=== PATIENT | male | born 1955 | race Caucasian/White ===

== ENCOUNTER 2017-02-22 16:11 | Emergency (ER) | payer SELFPAY ==
[~2017-02-22] VITALS: Ht 167.6 cm; Wt 57.0 kg
[2017-02-22 16:14] VITALS: BP 171/82; PULSE 82; RESP 20; TEMP 97.4; O2SAT 99
[2017-02-22] MEDS ORDERED: CEPH-460 PO (16:53)
[2017-02-22] MEDS ORDERED: HYDR-3533 PO (16:53)
[2017-02-22] MEDS ORDERED: ACYC800T PO (16:53)
--- NOTE | 2017-02-22 16:58 | PD ---
HPI Chief Complaint: Eye Problems/Injury Time Seen by Provider: 16:53 Travel History International Travel<30 days: No Contact w/Intl Traveler<30days: No Traveled to known affect area: No History of Present Illness HPI 62-year-old male that presents to the ED for evaluation of problems with the left eye. Per patient she's had a rash and swelling around the left eye for the past 3 days. Patient went to an urgent care today he was told to come here to get his eye checked. Patient states that the provider pending wasn't too sure what he was in she was concerning for herpes zoster. She was concerned that he might be involving the eye. He denies any pain. Per patient he had chickenpox as a young boy. He denies any chest pain. No shortness of breath. No rashes anywhere else. No blurry vision or double vision. No pain. Patient denies any history of IV drug abuse or MRSA. Per patient he is never sick. He states that the only concern with him is the swelling as well as the rash. He was not given any prescriptions. PFSH Past Medical History Medical History: Denies Significant Hx Past Surgical History Other Surgery: Yes (hernia repair) Social History Alcohol Use: Yes (3-4 beers a night) Tobacco Use: Yes (1 - 1.5 pack day) Substance Use: No Allergies-Medications (Allergen,Severity, Reaction): Coded Allergies: No Known Allergies (Unverified , 02/22/17) Reported Meds & Prescriptions Reported Meds & Active Scripts Active Lortab (Hydrocodone-Acetaminophen) 5-325 Mg Tab 1 Tab PO Q4H PRN Keflex (Cephalexin) 500 Mg Cap 500 Mg PO Q8H 10 Days Acyclovir 800 Mg Tab 800 Mg PO 5 TIMES A DAY 7 Days Review of Systems Except as stated in HPI: all other systems reviewed are Neg Physical Exam Narrative GENERAL: SKIN: Warm and dry. HEAD: Atraumatic. Normocephalic. EYES: Pupils equal and round 4 mm reactive to light and accommodation. No scleral icterus. No injection or drainage. EOM intact bilaterally. Peripheral vision intact bilaterally. Fluorescein stain revealed no dendritic lesions or abrasions to the eye and cornea. Patient has a herpetic rash on the left forehead as well as the right nose and maxillary area. Vesicular. Follows dermatomal distribution. Does not cross the midline. Ophthalmic exam revealed no sign of papilledema or vessel disease. ENT: No nasal bleeding or discharge. Mucous membranes pink and moist. Tongue is midline. No uvula deviation. NECK: Trachea midline. No JVD. CARDIOVASCULAR: Regular rate and rhythm. RESPIRATORY: No accessory muscle use. Clear to auscultation. Breath sounds equal bilaterally. GASTROINTESTINAL: Abdomen soft, non-tender, nondistended. Hepatic and splenic margins not palpable. MUSCULOSKELETAL: Extremities without clubbing, cyanosis, or edema. No obvious deformities. NEUROLOGICAL: Awake and alert. No obvious cranial nerve deficits. Motor grossly within normal limits. Five out of 5 muscle strength in the arms and legs. Normal speech. PSYCHIATRIC: Appropriate mood and affect; insight and judgment normal. Data Data Last Documented VS Vital Signs Date Time Temp Pulse Resp B/P Pulse Ox O2 Delivery O2 Flow Rate FiO2 02/22/17 16:14 97.4 82 20 171/82 99 Room Air MDM Medical Decision Making Medical Screen Exam Complete: Yes Emergency Medical Condition: Yes Medical Record Reviewed: Yes Differential Diagnosis Herpes zoster versus periorbital cellulitis versus cellulitis Narrative Course 62-year-old male that presents to the ED for evaluation of left eye rash. Patient was properly examined and was found to have signs and symptoms consistent appears to be likely herpes zoster. My attending Dr. Coon evaluated the patient with me and agrees with plan. I spoke with Dr. Gomez over the phone who agrees that no treatment at this time for the eye itself but does recommend treating the herpes zoster with antivirals. Patient will be given information for Dr. Gomez's office. Patient agrees with plan. My attending recommends also treating with Keflex to rule out any sign of periorbital cellulitis of the this appears to be less likely. Patient was given Lortab for pain as well. Patient was given information for Dr. Gomez. Follow up with PCP. See ED worsening symptoms. Patient understands reasons to come back. Diagnosis Primary Impression: Shingles Qualified Code: B02.9 - Herpes zoster without complication Referrals: Gabby Gomez MD Patient Instructions: General Instructions Med/Other Pt SpecificInfo: Prescription(s) given Scripts Hydrocodone-Acetaminophen (Lortab)5-325 Mg Tab1 Tab PO Q4H PRN (PAIN) #15 TAB Ref 0 Prov:Davis Coon MD 5/21/17 Cephalexin (Keflex)500 Mg [id number] Mg PO Q8H 10 Days Ref 0 Prov:Davis Coon MD 02/22/17 Acyclovir 800 Mg [id number] Mg PO 5 TIMES A DAY 7 Days Ref 0 Prov:Davis Coon MD 02/22/17 Disposition: 01 DISCHARGE HOME Condition: Stable Nikhil Spaulding February 22, 2017 16:58
== END 2017-02-22 17:11 | disposition home or self-care (01) ==
LOC: NEPD 16:11
DX: B02.9 Zoster without complications (principal); F17.210 Nicotine dependence, cigarettes, uncomplicated; F10.10 Alcohol abuse, uncomplicated
CPT/HCPCS: 99283

== ENCOUNTER 2017-11-25 09:21 | Emergency (ER) | payer SELFPAY ==
[~2017-11-25] VITALS: Ht 167.6 cm; Wt 60.0 kg
[~2017-11-25 09:21] MED LIST: ACYC800T PO; CEPH-460 PO; HYDR-3533 PO
[2017-11-25 09:23] VITALS: BP 151/98; PULSE 118; RESP 14; TEMP 97.8; O2SAT 97
[2017-11-25 09:27] VITALS: PULSE 96
--- NOTE | 2017-11-25 09:41 | PD ---
HPI Chief Complaint: Skin Problem Time Seen by Provider: 09:30 Travel History International Travel<30 days: No Contact w/Intl Traveler<30days: No Traveled to known affect area: No History of Present Illness HPI 62-year-old male smoker presents for evaluation of a mass on the right side of his neck. It first started 3 weeks ago and has gradually grown larger since then. He reports that the mass is nontender. He denies any sore throat, cough , congestion, ear pain, fevers, chills, night sweats, unexplained weight loss, dental pain. He has never had this problem before. He denies any significant past medical history. He has no other complaints at this time. [facility] Past Medical History Medical History: Denies Significant Hx Past Surgical History Other Surgery: Yes (hernia repair, lung) Social History Alcohol Use: Yes (3-4 beers a night) Tobacco Use: Yes (1 - 1.5 pack day) Substance Use: No Allergies-Medications (Allergen,Severity, Reaction): Coded Allergies: No Known Allergies (Unverified Adverse Reaction, Unknown, 11/25/17) Reported Meds & Prescriptions Reported Meds & Active Scripts Active No Active Prescriptions or Reported Medications Review of Systems Except as stated in HPI: all other systems reviewed are Neg Physical Exam Narrative GENERAL: Well-developed well-nourished male in no acute distress SKIN: Warm and dry. HEAD: Atraumatic. Normocephalic. EYES: Pupils equal and round. No scleral icterus. No injection or drainage. ENT: No nasal bleeding or discharge. Mucous membranes pink and moist. NECK: Trachea midline. No JVD. There is a large right-sided anterior neck mass which is fixed, nontender. There is no erythema or fluctuance. CARDIOVASCULAR: Regular rate and rhythm. No murmur appreciated. RESPIRATORY: No accessory muscle use. Clear to auscultation. Breath sounds equal bilaterally. GASTROINTESTINAL: Abdomen soft, non-tender, nondistended. Hepatic and splenic margins not palpable. Data Data Last Documented VS Vital Signs Date Time Temp Pulse Resp B/P (MAP) Pulse Ox O2 Delivery O2 Flow Rate FiO2 11/25/17 09:27 96 11/25/17 09:23 97.[address] Soft Tiss Neck W Iv Cont (11/25/17 ) Complete Blood Count With Diff (11/25/17 09:36) Basic Metabolic Panel (Bmp) (11/25/17 09:36) Iv Access Insert/Monitor (11/25/17 09:36) Iohexol 350 Inj (Omnipaque 350 Inj) (11/25/17 10:56) Mandatory Outpatient Referral (11/25/17 12:24) Ed Discharge Order (11/25/17 12:25) Labs Laboratory Tests Test 11/25/17 09:50 White Blood Count 9.4 TH/MM3 Red Blood Count 4.25 MIL/MM3 Hemoglobin 14.8 GM/DL Hematocrit 40.4 % Mean Corpuscular Volume 95.2 FL Mean Corpuscular Hemoglobin 34.8 PG Mean Corpuscular Hemoglobin Concent 36.6 % Red Cell Distribution Width 12.8 % Platelet Count 341 TH/MM3 Mean Platelet Volume 7.3 FL Neutrophils (%) (Auto) 75.3 % Lymphocytes (%) (Auto) 15.7 % Monocytes (%) (Auto) 7.9 % Eosinophils (%) (Auto) 0.6 % Basophils (%) (Auto) 0.5 % Neutrophils # (Auto) 7.0 TH/MM3 Lymphocytes # (Auto) 1.5 TH/MM3 Monocytes # (Auto) 0.7 TH/MM3 Eosinophils # (Auto) 0.1 TH/MM3 Basophils # (Auto) 0.0 TH/MM3 CBC Comment AUTO DIFF Differential Comment AUTO DIFF CONFIRMED Blood Urea Nitrogen 7 MG/DL Creatinine 0.55 MG/DL Random Glucose 154 MG/DL Calcium Level 9.7 MG/DL Sodium Level 137 MEQ/L Potassium Level 4.4 MEQ/L Chloride Level 102 MEQ/L Carbon Dioxide Level 27.9 MEQ/L Anion Gap 7 MEQ/L Estimat Glomerular Filtration Rate 151 ML/MIN [facility] Medical Decision Making Medical Screen Exam Complete: Yes Emergency Medical Condition: Yes Medical Record Reviewed: Yes Differential Diagnosis Malignancy, lymphadenitis, abscess, siolalithiasis Narrative Course CT imaging of the neck was obtained revealing: CONCLUSION: 1. There is a 2.8 x 2.8 cm necrotic node in the group 2 jugular ede chain on the right. There is abnormal soft tissue extending down the jugular ede chain on the right as well. This is suspicious for malignancy. No definite primary etiology is seen within the nasopharynx, oropharynx or larynx. PET imaging would be of benefit for further assessment. This node would be readily amenable to ultrasound-guided biopsy. 2. Scarring in the lung apices. I spoke with the on-call oncologist Dr. Ulloa who would like the patient follow- up with him. I spoke with our case packer to confirm that a mandatory outpatient referral can be placed for outpatient follow-up. I discussed the follow-up purpose in great detail with the patient verbalized understanding. He was given a copy of his CAT scan report. He is stable for discharge. Diagnosis Primary Impression: Lymphadenitis Referrals: Blayne Ulloa MD Additional Instructions: Follow-up with Dr. Ulloa in his office. Our case packer will be calling at some point to help facilitate an appointment. Return for any emergent medical conditions. Med/Other Pt SpecificInfo: No Change to Meds Scripts No Active Prescriptions or Reported Meds Disposition: 01 DISCHARGE HOME Condition: Stable Freddy Mccoy Nov 25, 2017 09:41
[2017-11-25 10:16] LABS: BASOPHIL % 0.5 % (0.0-2.0); EOSINOPHIL # 0.1 TH/MM3 (0-0.4); EOSINOPHIL % 0.6 % (0.0-4.0); HEMATOCRIT 40.4 % (39.0-51.0); HEMOGLOBIN 14.8 GM/DL (13.0-17.0); LYMPH % 15.7 % (9.0-44.0); LYMPHOCYTE # 1.5 TH/MM3 (1.0-4.8); MEAN CELL VOLUME 95.2 FL (80.0-100.0); MEAN CORPUSCULAR HEMOGLOBIN 34.8 PG (27.0-34.0); MEAN PLATELET VOLUME 7.3 FL (7.0-11.0); MONO % 7.9 % (0.0-8.0); MONOCYTE # 0.7 TH/MM3 (0-0.9); NEUT % 75.3 % (16.0-70.0); PLATELET COUNT 341 TH/MM3 (150-450); RED BLOOD COUNT 4.25 MIL/MM3 (4.50-5.90); RED CELL DISTRIBUTION WIDTH 12.8 % (11.6-17.2); WHITE BLOOD COUNT 9.4 TH/MM3 (4.0-11.0)
[2017-11-25 10:22] LABS: BICARBONATE 27.9 MEQ/L (21.0-32.0); CALCIUM 9.7 MG/DL (8.5-10.1); CREATININE 0.55 MG/DL (0.60-1.30)
[2017-11-25 10:23] LABS: MEAN CORPUSCULAR HGB CONC 36.6 % (32.0-36.0)
[2017-11-25] MEDS ORDERED: IOHEXOL 350 MG/ML 10 ML VIAL (for RAD DIAG) IVCONTRAST ONE (10:56)
--- NOTE | 2017-11-25 11:09 | RADRPT ---
EXAM DATE/TIME: 11/25/2017 10:47 [facility] COMPARISON: No previous studies available for comparison. INDICATIONS : Neck pain, Lump on right side IV CONTRAST: 68 cc Omnipaque 350 (iohexol) IV RADIATION DOSE: 10.68 CTDIvol (mGy) MEDICAL HISTORY : None SURGICAL HISTORY : Lung surgery, hernia repair ENCOUNTER: Initial ACUITY: 3 weeks PAIN SCALE: 5/10 LOCATION: Right neck TECHNIQUE: Volumetric scanning of the neck was performed. Using automated exposure control and adjustment of th e mA and/or kV according to patient size, radiation dose was kept as low as reasonably achievable to obtain optimal diagnostic quality images. DICOM format image data is available electronically for r eview and comparison. FINDINGS: The examination demonstrates a 2.8 x 2.8 cm necrotic node in the group 2 jugular ede chain on the r ight. This is suspicious for malignancy. No discrete enhancing mass is seen within the posterior pill ar, the tongue base or the larynx. No definite primary etiology is identified. PET imaging would be o f benefit for further assessment. The limited portion of brain parenchyma visualized is unremarkable. The soft tissues of the nasophary nx and the oropharynx are intact. The larynx appears intact. The parotid and submandibular glands are intact. The limited portion of lung apex visualized demonstrates postsurgical changes with scarring in the ri ght upper lobe. There is apical pleural thickening on the left. The visualized osseous structures are grossly intact. CONCLUSION: 1. There is a 2.8 x 2.8 cm necrotic node in the group 2 jugular ede chain on the right. There is ab normal soft tissue extending down the jugular ede chain on the right as well. This is suspicious fo r malignancy. No definite primary etiology is seen within the nasopharynx, oropharynx or larynx. PET imaging would be of benefit for further assessment. This node would be readily amenable to ultrasound -guided biopsy. 2. Scarring in the lung apices. Cameron Dhaliwal MD on November 25, 2017 at 11:02 Board Certified Radiologist. This report was verified electronically.
== END 2017-11-25 12:37 | disposition home or self-care (01) ==
LOC: NEPK 09:21
DX: I88.9 Nonspecific lymphadenitis, unspecified (principal); F17.210 Nicotine dependence, cigarettes, uncomplicated
CPT/HCPCS: 70491; 80048; 85025; 99284; Q9967

== ENCOUNTER 2018-01-26 12:58 | Day surgery (SDC) | payer SELFPAY ==
[2018-01-26 13:45] VITALS: BP 124/90; PULSE 80; RESP 16; TEMP 98.8; O2SAT 100
[2018-01-26] MEDS ORDERED: LIDOCAINE HCL 1% PF 30 ML VIAL ONE (13:54)
[2018-01-26 14:25] VITALS: BP 117/85; PULSE 76; RESP 20; TEMP 98.4; O2SAT 96
--- NOTE | 2018-01-26 14:28 | RADRPT ---
EXAM DATE/TIME: 01/26/2018 13:45 [facility] COMPARISON: No previous studies available for comparison. INDICATIONS : Right neck mass. MEDICAL HISTORY : Weight loss. SURGICAL HISTORY : Lung surgery. Hernia repair. ENCOUNTER: Subsequent ACUITY: 2 weeks PAIN SCORE: 0/10 LOCATION: Right neck ORGAN: Right lymph node SPECIMENS: Three core specimen(s) submitted for pathologic evaluation. DEVICE: 18 gauge Temno needle Post procedure scanning reveals no hematoma or other complication. The possibility does exist that the tissue obtained will be non-diagnostic. If the sample is non-xavier gnostic a repeat biopsy or surgical biopsy may need to be performed. TECHNIQUE: 1. Ultrasound guidance for needle biopsy. 2. Needle biopsy. The risks, benefits and alternatives to the procedure were explained and verbal and written consent w as obtained. The site was prepped in sterile fashion. Full sterile technique was used, including ca p, mask, sterile gloves and gown and a large sterile sheet. Hand hygiene and 2% chlorhexidine and/or betadine/alcohol prep was utilized per protocol for cutaneous antisepsis. The skin and subcutaneous tissues were infiltrated with local anesthetic solution. Sterile gel and sterile probe cover were u tilized for ultrasound guidance. With the patient on the ultrasound table, images were obtained. A needle was advanced into the identified target and the number of specimens as above obtained and gudino bmitted for pathologic evaluation. Final specimen was submitted in RPMI solution. The patient tolerated the procedure well and left the ultrasound suite in stable condition. CONCLUSION: Uncomplicated ultrasound guided needle biopsy. Juan Naidu MD on January 26, 2018 at 14:25 Board Certified Radiologist. This report was verified electronically.
[2018-01-26 14:40] VITALS: BP 135/89; PULSE 74; RESP 20; O2SAT 95
== END 2018-01-26 14:51 | disposition home or self-care (01) ==
LOC: HRAD 12:58 → HRIP 13:33 → HRAD 14:51
PROVIDERS: ATTEND Internal Medicine Hematology & Oncology
DX: R22.1 Localized swelling, mass and lump, neck (principal); R63.4 Abnormal weight loss
CPT/HCPCS: 38505; 76942; 88305

== ENCOUNTER 2018-02-02 15:18 | Inpatient (IN) | payer OTHER ==
[~2018-02-02] VITALS: Ht 165.1 cm; Wt 45.1 kg
[2018-02-02 15:20] VITALS: BP 116/73; PULSE 67; RESP 19; TEMP 97.4; O2SAT 98
[2018-02-02] MEDS ORDERED: SODIUM CHLOR 0.9% 1000 ML INJ 1,000 ML IV ONE (15:30)
--- NOTE | 2018-02-02 15:40 | PD ---
HPI Chief Complaint: Abdominal Pain Time Seen by Provider: 15:24 Travel History International Travel<30 days: No Contact w/Intl Traveler<30days: No Traveled to known affect area: No History of Present Illness HPI The patient is a 63-year-old male who presents to the emergency department for abnormal lab results. The patient states he recently had a biopsy of a mass in the right neck, was diagnosed with cancer. The patient states he does not know the official diagnosis of his cancer. The patient's biopsy was done by Dr. Cross and is currently followed by his oncologist, Dr. Ulloa. The patient had outpatient laboratory evaluation which revealed an elevated calcium level was sent to the emergency department for further evaluation. The patient does have a history of tobacco use, is unsure if there is any metastasis to the bone. He denies any known history of parathyroid disorders or thyroid disorders. He denies any muscle aches, bone pains, psychiatric disorders, or kidney stones. He is currently asymptomatic, but was advised to come the emergency department for further evaluation. He continues use to pass urine without difficulty denies taking any medications including diuretics. 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 Past Surgical History Narrative Surgical Biopsy right neck mass Other Surgery: Yes (hernia repair, lung) Social History Alcohol Use: Yes (3-4 beers a night) Tobacco Use: Yes (1 - 1.5 pack day) Substance Use: No Allergies-Medications (Allergen,Severity, Reaction): Coded Allergies: No Known Allergies (Unverified Allergy, Unknown, 02/02/18) Reported Meds & Prescriptions Reported Meds & Active Scripts Active No Active Prescriptions or Reported Medications Review of Systems Except as stated in HPI: all other systems reviewed are Neg General / Constitutional: No: Fever HENT: Positive: Masses, No: Lightheadedness, Neck Pain Cardiovascular: No: Chest Pain or Discomfort Respiratory: No: Shortness of Breath Gastrointestinal: No: Nausea, Vomiting, Abdominal Pain Genitourinary: No: Dysuria, Hematuria, Decreased Urinary Output Musculoskeletal: No: Weakness Neurologic: No: Weakness, Change in Mentation, Paresthesia, Seizures, Sensory Disturbance Psychiatric: No: Depression Physical Exam Narrative GENERAL: Awake, alert, pleasant 63-year-old male who appears his stated age and is in no acute respiratory distress. SKIN: Focused skin assessment warm/dry. HEAD: Atraumatic. Normocephalic. EYES: Pupils equal and round. No scleral icterus. No injection or drainage. ENT: No nasal bleeding or discharge. Mucous membranes pink and moist. NECK: Right neck mass, nontender to palpation. CARDIOVASCULAR: Regular rate and rhythm. No murmur appreciated. RESPIRATORY: No accessory muscle use. Clear to auscultation. Breath sounds equal bilaterally. GASTROINTESTINAL: Abdomen soft, non-tender, nondistended. No rebound tenderness. MUSCULOSKELETAL: No obvious deformities. No clubbing. No cyanosis. No edema. NEUROLOGICAL: Awake and alert. No obvious cranial nerve deficits. Motor grossly within normal limits. Normal speech. Nonfocal. PSYCHIATRIC: Appropriate mood and affect; insight and judgment normal. Data Data Last Documented VS Vital Signs Date Time Temp Pulse Resp B/P (MAP) Pulse Ox O2 Delivery O2 Flow Rate FiO2 02/02/18 17:00 58 20 112/70 (84) 96 Room Air 02/02/18 15:20 97.4 Orders Orders Complete Blood Count With Diff (02/02/18 15:30) Comprehensive Metabolic Panel (02/02/18 15:30) Thyroid Stimulating Hormone (02/02/18 15:30) Magnesium (Mg) (02/02/18 15:30) Sodium Chlor 0.9% 1000 Ml Inj (Ns 1000 M (02/02/18 15:30) Free Thyroxine (T4) (02/02/18 15:30) Parathyroid Hormone Intact (02/02/18 15:30) Calcium, Ionized (02/02/18 15:30) Electrocardiogram (02/02/18 ) Ns + Kcl 20 Meq Inj (Ns + Kcl 20 Meq Inj (02/02/18 17:00) Admit Order (Ed Use Only) (02/02/18 17:22) Magnesium Sulfate 1 Gm Premix (Magnesium (02/02/18 17:30) Labs Laboratory Tests Test 02/02/18 15:40 02/02/18 16:40 Blood Urea Nitrogen 11 MG/DL Creatinine 0.81 MG/DL Random Glucose 67 MG/DL Total Protein 8.0 GM/DL Albumin 3.1 GM/DL Calcium Level 13.7 MG/DL Magnesium Level 1.4 MG/DL Alkaline Phosphatase 76 U/L Aspartate Amino Transf (AST/SGOT) 16 U/L Alanine Aminotransferase (ALT/SGPT) 12 U/L Total Bilirubin 0.2 MG/DL Sodium Level 133 MEQ/L Potassium Level 2.9 MEQ/L Chloride Level 91 MEQ/L Carbon Dioxide Level 34.4 MEQ/L Anion Gap 8 MEQ/L Estimat Glomerular Filtration Rate 97 ML/MIN Protein Corrected Calcium 13.0 MG/DL Free Thyroxine 1.22 NG/DL Thyroid Stimulating Hormone 3rd Gen 1.200 uIU/ML White Blood Count 16.9 TH/MM3 Red Blood Count 4.12 MIL/MM3 Hemoglobin 13.1 GM/DL Hematocrit 38.2 % Mean Corpuscular Volume 92.8 FL Mean Corpuscular Hemoglobin 31.8 PG Mean Corpuscular Hemoglobin Concent 34.3 % Red Cell Distribution Width 11.7 % Platelet Count 241 TH/MM3 Mean Platelet Volume 8.9 FL Neutrophils (%) (Auto) 72.9 % Lymphocytes (%) (Auto) 16.0 % Monocytes (%) (Auto) 9.0 % Eosinophils (%) (Auto) 1.4 % Basophils (%) (Auto) 0.7 % Neutrophils # (Auto) 12.3 TH/MM3 Lymphocytes # (Auto) 2.7 TH/MM3 Monocytes # (Auto) 1.5 TH/MM3 Eosinophils # (Auto) 0.2 TH/MM3 Basophils # (Auto) 0.1 TH/MM3 CBC Comment AUTO DIFF Differential Comment AUTO DIFF CONFIRMED Platelet Estimate NORMAL Platelet Morphology Comment CLUMPED MDM Medical Decision Making Medical Screen Exam Complete: Yes Emergency Medical Condition: Yes Medical Record Reviewed: Yes Interpretation(s) EKG reveals sinus bradycardia with a heart rate of 57. RSR prime in V1. Nonspecific ST changes. Laboratory Tests Test 02/02/18 15:40 02/02/18 16:40 Blood Urea Nitrogen 11 MG/DL Creatinine 0.81 MG/DL Random Glucose 67 MG/DL Total Protein 8.0 GM/DL Albumin 3.1 GM/DL Calcium Level 13.7 MG/DL Magnesium Level 1.4 MG/DL Alkaline Phosphatase 76 U/L Aspartate Amino Transf (AST/SGOT) 16 U/L Alanine Aminotransferase (ALT/SGPT) 12 U/L Total Bilirubin 0.2 MG/DL Sodium Level 133 MEQ/L Potassium Level 2.9 MEQ/L Chloride Level 91 MEQ/L Carbon Dioxide Level 34.4 MEQ/L Anion Gap 8 MEQ/L Estimat Glomerular Filtration Rate 97 ML/MIN Protein Corrected Calcium 13.0 MG/DL Free Thyroxine 1.22 NG/DL Thyroid Stimulating Hormone 3rd Gen 1.200 uIU/ML White Blood Count 16.9 TH/MM3 Red Blood Count 4.12 MIL/MM3 Hemoglobin 13.1 GM/DL Hematocrit 38.2 % Mean Corpuscular Volume 92.8 FL Mean Corpuscular Hemoglobin 31.8 PG Mean Corpuscular Hemoglobin Concent 34.3 % Red Cell Distribution Width 11.7 % Platelet Count 241 TH/MM3 Mean Platelet Volume 8.9 FL Neutrophils (%) (Auto) 72.9 % Lymphocytes (%) (Auto) 16.0 % Monocytes (%) (Auto) 9.0 % Eosinophils (%) (Auto) 1.4 % Basophils (%) (Auto) 0.7 % Neutrophils # (Auto) 12.3 TH/MM3 Lymphocytes # (Auto) 2.7 TH/MM3 Monocytes # (Auto) 1.5 TH/MM3 Eosinophils # (Auto) 0.2 TH/MM3 Basophils # (Auto) 0.1 TH/MM3 CBC Comment AUTO DIFF Differential Comment AUTO DIFF CONFIRMED Platelet Estimate NORMAL Platelet Morphology Comment CLUMPED Differential Diagnosis Differential diagnosis includes hypercalcemia, metastatic cancer to the bone, hyperthyroidism, hyperparathyroidism, medication side effect, lab error. Narrative Course IV was established, labs are drawn and sent, and the patient was placed on cardiac telemetry monitoring and continuous pulse oximetry monitoring. EKG was ordered and interpreted. TSH, free T4, PTH, and ionized calcium level were sent to lab. The patient was administered 1 L of IV fluids. The patient's calcium level was 13.7, 13.1 protein corrected. Ionized calcium and PTH were pending. The patient initially received 1 L of IV fluids, potassium is 2.9, second liter fluid was ran at 125 mL's with 20 mEq potassium chloride. The patient does have hypercalcemia, unsure if this was related to squamous cell carcinoma with bony metastasis versus possible hyperparathyroidism. The patient will be admitted, may benefit from evaluation by his oncologist. The on -call medical service was paged for admission. Physician Communication Physician Communication The on-call medical service was paged for admission. I discussed the patient Dr. Bowling who agrees with admission. Diagnosis Primary Impression: Hypercalcemia Additional Impressions: Squamous cell carcinoma Hypokalemia Hypomagnesemia Admitting Information Admitting Physician Requests: Admit Scripts No Active Prescriptions or Reported Meds Condition: Stable Beto Gilliam MD February 02, 2018 15:40
[2018-02-02 15:41] VITALS: BP 112/68; PULSE 25; RESP 18; O2SAT 100
[2018-02-02 16:00] VITALS: BP 112/70; PULSE 56; RESP 18; O2SAT 96
[2018-02-02 16:43] LABS: ALBUMIN 3.1 GM/DL (3.4-5.0); BICARBONATE 34.4 MEQ/L (21.0-32.0); CALCIUM 13.7 MG/DL (8.5-10.1); CREATININE 0.81 MG/DL (0.60-1.30); FREE T4 1.22 NG/DL (0.76-1.46); MAGNESIUM 1.4 MG/DL (1.5-2.5); TOTAL BILIRUBIN ADULT 0.2 MG/DL (0.2-1.0)
[2018-02-02 17:00] VITALS: BP_SYST 112; BP_SYST 93; BP_DIAS 59; BP_DIAS 70; PULSE 54; PULSE 58; RESP 18; RESP 20; O2SAT 96; O2SAT 97
[2018-02-02 17:27] LABS: AUTOMATED NEUTROPHIL # 12.3 TH/MM3 (1.8-7.7); BASOPHIL # 0.1 TH/MM3 (0-0.2); BASOPHIL % 0.7 % (0.0-2.0); EOSINOPHIL # 0.2 TH/MM3 (0-0.4); EOSINOPHIL % 1.4 % (0.0-4.0); HEMATOCRIT 38.2 % (39.0-51.0); HEMOGLOBIN 13.1 GM/DL (13.0-17.0); LYMPHOCYTE # 2.7 TH/MM3 (1.0-4.8); MEAN CELL VOLUME 92.8 FL (80.0-100.0); MEAN CORPUSCULAR HEMOGLOBIN 31.8 PG (27.0-34.0); MEAN CORPUSCULAR HGB CONC 34.3 % (32.0-36.0); MEAN PLATELET VOLUME 8.9 FL (7.0-11.0); MONOCYTE # 1.5 TH/MM3 (0-0.9); NEUT % 72.9 % (16.0-70.0); RED BLOOD COUNT 4.12 MIL/MM3 (4.50-5.90); RED CELL DISTRIBUTION WIDTH 11.7 % (11.6-17.2); WHITE BLOOD COUNT 16.9 TH/MM3 (4.0-11.0)
[2018-02-02] MEDS: MAGNESIUM SULFATE 1 GM PREMIX 100 ML IV SCH ×2 (17:28→20:01)
[2018-02-02] MEDS: NS + KCL 20 MEQ INJ 1,000 ML IV SCH ×2 (17:31→22:00)
[2018-02-02] MEDS ORDERED: SODIUM CHLORIDE 0.9% FLUSH 10 ML FLUSH IV FLUSH PRN (17:45)
[2018-02-02] MEDS ORDERED: SODIUM CHLOR 0.9% 1000 ML INJ 1,000 ML IV SCH (17:45)
--- NOTE | 2018-02-02 17:51 | HHI.HP ---
[facility] Primary Care Physician Orlando Cross MD Admission Diagnosis Hypercalcemia, hypokalemia, hypomagnesemia, squamous cell carcinoma Diagnoses: Chief Complaint: Sent for abnormal labs. Travel History International Travel<30 Days: No Contact w/Intl Traveler <30 Da: No Traveled to Known Affected Are: No History of Present Illness 63 Y/O male who presented to the ED for abnormal labs. The patient is a poor historian. He had lab work done outpatient which revealed a markedly elevated calcium level therefore he was sent to the emergency room. Patient himself denies any symptoms. However his friend reported to the ED staff he had some issues with confusion. The patient does have a right sided neck mass that was biopsied recently and came back as squamous cell carcinoma. The patient's oncologist is Dr. Ulloa. Workup in the ED revealed a protein corrected calcium of 13. Patient denies any bone pain. He was started on IVF. Review of Systems Constitutional: DENIES: Fatigue, Fever, Chills Respiratory: DENIES: Shortness of breath Musculoskeletal: DENIES: Joint pain, Muscle aches Past Family Social History Past Medical History Neck cancer Past Surgical History Neck mass biopsy Reported Medications Reported Meds & Active Scripts Active No Active Prescriptions or Reported Medications Allergies: Coded Allergies: No Known Allergies (Unverified Allergy, Unknown, 02/02/18) Family History Reviewed and is noncontributory. Social History Alcohol Use: Yes (3-4 beers a night) Tobacco Use: Yes (1 - 1.5 pack day) Substance Use: No Physical Exam Vital Signs Vital Signs Date Time Temp Pulse Resp B/P (MAP) Pulse Ox O2 Delivery O2 Flow Rate FiO2 02/02/18 17:00 58 20 112/70 (84) 96 Room Air 02/02/18 16:00 56 18 112/70 (84) 96 Room Air 02/02/18 15:41 25 18 112/68 (83) 100 Room Air 02/02/18 15:20 97.4 67 19 116/73 (87) 98 Physical Exam GENERAL: This is a well-nourished, well-developed patient, in no apparent distress. SKIN: No rashes, ecchymoses or lesions. Cool and dry. HEAD: Tennis ball size right sided neck mass. EYES: Pupils equal round and reactive. Extraocular motions intact. No scleral icterus. No injection or drainage. ENT: Nose without bleeding, purulent drainage or septal hematoma. Throat without erythema, tonsillar hypertrophy or exudate. Uvula midline. Airway patent. NECK: Trachea midline. No JVD or lymphadenopathy. Supple, nontender, no meningeal signs. CARDIOVASCULAR: Regular rate and rhythm without murmurs, gallops, or rubs. RESPIRATORY: Clear to auscultation. Breath sounds equal bilaterally. No wheezes , rales, or rhonchi. GASTROINTESTINAL: Abdomen soft, non-tender, nondistended. No hepato-splenomegaly , or palpable masses. No guarding. MUSCULOSKELETAL: Extremities without clubbing, cyanosis, or edema. No joint tenderness, effusion, or edema noted. No calf tenderness. Negative Homans sign bilaterally. NEUROLOGICAL: Awake and alert. Cranial nerves II through XII intact. Motor and sensory grossly within normal limits. Five out of 5 muscle strength in all muscle groups. Normal speech. Laboratory Laboratory Tests Test 02/02/18 15:40 02/02/18 16:40 Blood Urea Nitrogen 11 Creatinine 0.81 Random Glucose 67 Total Protein 8.0 Albumin 3.1 Calcium Level 13.7 Magnesium Level 1.4 Alkaline Phosphatase 76 Aspartate Amino Transf (AST/SGOT) 16 Alanine Aminotransferase (ALT/SGPT) 12 Total Bilirubin 0.2 Sodium Level 133 Potassium Level 2.9 Chloride Level 91 Carbon Dioxide Level 34.4 Anion Gap 8 Estimat Glomerular Filtration Rate 97 Protein Corrected Calcium 13.0 Free Thyroxine 1.22 Thyroid Stimulating Hormone 3rd Gen 1.200 Result Diagram: 02/02/18 1540 Caprini VTE Risk Assessment Caprini VTE Risk Assessment: Mod/High Risk (score >= 2) Caprini Risk Assessment Model Point Value = 1 Point Value = 2 Point Value = 3 Point Value = 5 Age 41-60 Minor surgery BMI > 25 kg/m2 Swollen legs Varicose veins or History of unexplained or recurrent spontaneous Oral contraceptives or hormone replacement Sepsis (< 1 month) Serious lung disease, including pneumonia (< 1 month) Abnormal pulmonary function Acute myocardial infarction Congestive heart failure (< 1 month) History of inflammatory bowel disease Medical patient at bed rest Age 61-74 Arthroscopic surgery Major open surgery (> 45 min) Laparoscopic surgery (> 45 min) Malignancy Confined to bed (> 72 hours) Immobilizing plaster cast Central venous access Age >= 75 History of VTE Family history of VTE Factor V Leiden Prothrombin [id number] Lupus anticoagulant Anticardiolipin antibodies Elevated serum homocysteine Heparin-induced thrombocytopenia Other congenital or acquired thrombophilia Stroke (< 1 month) Elective arthroplasty Hip, pelvis, or leg fracture Acute spinal cord injury (< 1 month) Prophylaxis Regimen Total Risk Factor Score Risk Level Prophylaxis Regimen 0-1 Low Early ambulation 2 Moderate Order ONE of the following: *Sequential Compression Device (SCD) *Heparin 5000 units SQ BID 3-4 Higher Order ONE of the following medications: *Heparin 5000 units SQ TID *Enoxaparin/Lovenox 40 mg SQ daily (WT < 150 kg, CrCl > 30 mL/min) *Enoxaparin/Lovenox 30 mg SQ daily (WT < 150 kg, CrCl > 10-29 mL/min) *Enoxaparin/Lovenox 30 mg SQ BID (WT < 150 kg, CrCl > 30 mL/min) AND/OR *Sequential Compression Device (SCD) 5 or more Highest Order ONE of the following medications: *Heparin 5000 units SQ TID (Preferred with Epidurals) *Enoxaparin/Lovenox 40 mg SQ daily (WT < 150 kg, CrCl > 30 mL/min) *Enoxaparin/Lovenox 30 mg SQ daily (WT < 150 kg, CrCl > 10-29 mL/min) *Enoxaparin/Lovenox 30 mg SQ BID (WT < 150 kg, CrCl > 30 mL/min) AND *Sequential Compression Device (SCD) Assessment and Plan Problem List: (1) Hypercalcemia ICD Code: E83.52 - Hypercalcemia Status: Acute Plan: Corrected calcium 18. Patient with known neck mass/squamous cell cancer. Unclear if there is parathyroid involvement vs bony mets Continue IVF Check PTH, ionized calcium Oncologist consulted If no improvement or ca goes above 14, consider calcitonin, bisphosphonates and endocrinology consult. (2) Squamous cell carcinoma ICD Code: C44.92 - Squamous cell carcinoma of skin, unspecified Status: Acute Plan: Patient's oncologist consulted (3) Hypomagnesemia ICD Code: E83.42 - Hypomagnesemia Status: Acute Plan: Replace and monitor (4) Hypokalemia ICD Code: E87.6 - Hypokalemia Status: Acute Plan: Replace and monitor Discussed Condition With Dr. Gilliam. Physician Certification 2 Midnight Certification Type: Admission for Inpatient Services Order for Inpatient Services The services are ordered in accordance with Medicare regulations or non- Medicare payer requirements, as applicable. In the case of services not specified as inpatient-only, they are appropriately provided as inpatient services in accordance with the 2-midnight benchmark. Estimated LOS (days): 2 days is the estimated time the patient will need to remain in the hospital, assuming treatment plan goals are met and no additional complications. Post-Hospital Plan: Home Fernando Bowling MD February 02, 2018 17:51
[2018-02-02 18:08] LABS: PLATELET COUNT 241 TH/MM3 (150-450)
[2018-02-02 19:43] VITALS: PULSE 53
[2018-02-02 20:00] VITALS: BP 104/65; PULSE 53; RESP 21; TEMP 98.2; O2SAT 98
[2018-02-02] MEDS: HEPARIN SODIUM - SQ 10,000 UNITS/ML VIAL SQ SCH (20:01)
[2018-02-02] MEDS ORDERED: POTASSIUM CHLORIDE 20 MEQ CONTROLLED RELEASE TAB PO ONE (22:45)
[2018-02-02] MEDS: SODIUM CHLORIDE 0.9% FLUSH 10 ML FLUSH IV FLUSH SCH (23:04)
[2018-02-03] VITALS (10 sets, daily range): BP systolic 91–127; BP diastolic 59–72; PULSE 41–66; RESP 16–18; TEMP 97.7–98.8; O2SAT 93–98
[2018-02-03] MEDS: NS + KCL 20 MEQ INJ 1,000 ML IV SCH ×3 (06:38→23:17)
[2018-02-03 07:11] LABS: AUTOMATED NEUTROPHIL # 6.1 TH/MM3 (1.8-7.7); BASOPHIL # 0.1 TH/MM3 (0-0.2); EOSINOPHIL # 0.1 TH/MM3 (0-0.4); EOSINOPHIL % 1.6 % (0.0-4.0); HEMATOCRIT 32.5 % (39.0-51.0); HEMOGLOBIN 11.3 GM/DL (13.0-17.0); LYMPHOCYTE # 1.6 TH/MM3 (1.0-4.8); MEAN CELL VOLUME 92.8 FL (80.0-100.0); MEAN CORPUSCULAR HEMOGLOBIN 32.4 PG (27.0-34.0); MEAN CORPUSCULAR HGB CONC 34.9 % (32.0-36.0); MEAN PLATELET VOLUME 8.6 FL (7.0-11.0); MONO % 8.8 % (0.0-8.0); MONOCYTE # 0.8 TH/MM3 (0-0.9); NEUT % 70.6 % (16.0-70.0); PLATELET COUNT 300 TH/MM3 (150-450); RED CELL DISTRIBUTION WIDTH 11.8 % (11.6-17.2); WHITE BLOOD COUNT 8.7 TH/MM3 (4.0-11.0)
[2018-02-03 07:40] LABS: CALCIUM 12.3 MG/DL (8.5-10.1); CREATININE 0.64 MG/DL (0.60-1.30); MAGNESIUM 1.8 MG/DL (1.5-2.5)
[2018-02-03] MEDS ORDERED: PAMIDRONATE INJ 90 MG in SODIUM CHLORID 0.9% 500 ML INJ 500 ML IV ONE (08:00)
[2018-02-03 08:17] LABS: TOTAL PROTEIN 6.9 GM/DL (6.4-8.2)
[2018-02-03 08:23] LABS: CALCIUM-PROTEIN CORRECTED 12.5 MG/DL (8.5-10.1)
--- NOTE | 2018-02-03 08:47 | MB ---
cc: Blayne Ulloa MD DATE: 02/03/2018 ATTENDING PHYSICIAN: Dr. Bowling REASON FOR CONSULTATION: Oncology consulted to render opinion regarding patient with head and neck cancer admitted for hypercalcemia. HISTORY OF PRESENT ILLNESS: The patient is a 63-year-old male with no significant past medical history who noted a right neck mass around the end of November. He went to the emergency room, had a CT scan done, which showed a 2.8 cm mass in the right neck. The patient had no insurance and had a difficult time establishing care with a primary physician. As stated, the mass has about tripled in size. He eventually was able to see a primary physician and was referred to surgeon for evaluation. He then had an ultrasound-guided biopsy which showed a moderately differentiated squamous cell carcinoma in fibroconnective tissue. He came to the oncology clinic for evaluation. He was found to have a calcium level of 14. He was then referred direct to the emergency room and admitted. He has a pressure in the right neck area, but denies any dysphagia or otalgia. He feels tired. There was some report of mild confusion per family. He denies any chest pressure or palpitations. Denies any shortness of breath or cough. Denies any nausea, vomiting, diarrhea or abdominal pain. Denies any bone pain. Denies any headache. Denies any focal numbness or weakness. PAST MEDICAL HISTORY: Recent diagnosis of neck squamous cell carcinoma. He denies any hypertension, coronary artery disease or diabetes. PAST SURGICAL HISTORY: Biopsy, right neck mass. Remote history of hernia repair. SOCIAL HISTORY: He smoked a pack a day for 40 years. He used to drink heavily, but now has about 2 drinks a day, but even less lately. He lives alone. FAMILY HISTORY: Sister had breast cancer and brother had lung cancer. He has a daughter and son, both healthy. ALLERGIES: NO KNOWN DRUG ALLERGIES. CURRENT MEDICATIONS: Heparin, potassium chloride. REVIEW OF SYSTEMS: CONSTITUTION: He has lost about 20 pounds over the last few months and has increased weakness. EYES: Negative. ENT: As above. CARDIOVASCULAR: Regular S1, S2. Denied chest pain or palpitation. RESPIRATORY: Denied shortness of breath or cough. GASTROINTESTINAL: Denies nausea, vomiting, diarrhea or abdominal pain. GENITOURINARY: No dysuria or hematuria. MUSCULOSKELETAL: Denies significant bone pain. SKIN: No rash or petechiae. NEUROLOGIC: As above. ENDOCRINE: Negative. HEMATOLOGIC: Negative. PSYCHIATRIC: Negative. PHYSICAL EXAMINATION: VITAL SIGNS: Temperature 98.1, blood pressure 91/59, O2 saturation 97% on room air. GENERAL: He is alert and oriented x 3, no acute distress. HEENT: Atraumatic, normocephalic. Pupils equal, round, and reactive to light. Extraocular muscles are intact. No scleral icterus. Oropharynx, dry mucosa. No obvious lesions. NECK: He has a large, at least 5 cm mass in the right neck. It is slightly tender. No erythema. LYMPHATIC: No palpable clavicular or axillary lymph nodes. CARDIOVASCULAR: Regular S1, S2. No murmur. LUNGS: Clear to auscultation bilaterally. ABDOMEN: Soft, nontender. Cannot palpate the liver or spleen. EXTREMITIES: No cyanosis. No edema. BACK: No paravertebral tenderness. SKIN: No rash or petechia. NEUROLOGIC: Nonfocal. LABORATORY DATA: WBC 8.7, hemoglobin 11.3, platelet count 300. Calcium level 13.7. PTH 7.3. ASSESSMENT: 1. Right neck squamous cell carcinoma: He noted a mass in the right neck at the end of November. The mass has almost tripled in size over the last few months. The biopsy of the right neck mass showed moderately differentiated squamous cell carcinoma in fibroconnective tissue. A CT of the neck in November showed a 2.8 cm mass, but no clear primary noted. The clinical picture is most consistent with primary head and neck cancer with metastasis to the lymph node. We will try to arrange for a PET-CT scan as an outpatient for further evaluation. I am going to consult ENT to see if they can find the primary tumor. I will also consult radiation oncology as the patient likely is going to need concurrent radiation and chemotherapy. 2. Hypercalcemia: Clinically, he has increased weakness and reported mild confusion. His PTH is low. This could be due to a bone metastasis or paraneoplastic syndrome. I am going to check a peptide related PTH and get a bone scan. He will continue IV fluid hydration. We will arrange for him to have pamidronate. 3. Constitutional symptoms: He has a 20 pound weight loss and increased weakness due to underlying malignancy. 4. Leukocytosis, this is likely leukemoid reaction. WBC had trended back down. RECOMMENDATIONS: 1. Arrange for bone scan and CT of the neck. 2. Check a peptide related PTH. 3. Continue IV fluid hydration. 4. We will give him pamidronate. 5. Consult ENT and radiation oncology. 6. The patient is going to need a port placement for chemotherapy. 7. Continue heparin for DVT prophylaxis. Thank you, Dr. Bowling for asking me to see this patient. MD HUNTER Salcido/SRINIVASA , 08:01 AM , 08:46 AM AMELIA
[2018-02-03] MEDS: SODIUM CHLORIDE 0.9% FLUSH 10 ML FLUSH IV FLUSH SCH ×2 (09:00→21:44)
[2018-02-03] MEDS: HEPARIN SODIUM - SQ 10,000 UNITS/ML VIAL SQ SCH ×2 (09:02→21:43)
--- NOTE | 2018-02-03 09:58 | EKG ---
Date Performed: 02/02/2018 Time Performed: 16:34:14 PTAGE: 63 years EKG: Sinus bradycardia Rsr' in V1 probable normal variant NO PREVIOUS TRACING DOCTOR: Demarco Barry Interpretating Date/Time 02/03/2018 09:57:55
--- NOTE | 2018-02-03 11:25 | PD.CONS ---
History of Present Illness Service Radiation oncology consult Consult Requested By Blayne Jasso Reason for Consult Chief complaint: Right neck mass. Reason for consult: Patient being evaluated for radiotherapy treatment options Primary Care Physician Orlando Cross MD Diagnoses: (1) Squamous cell carcinoma History of Present Illness Stage: [place] N2 M0. Right neck mass. HPI: This is a 63-year-old white male which was noted to have a right neck mass. According to the patient the mass has been going for the last 2 months. Patient denies any pain on the right neck mass. Patient states he has no lesions in the oral cavity. Denies any pain or difficulty swallowing. Patient has seen by Dr. Jasso for medical oncology. ENT consult has been placed for evaluation. Patient was admitted due to hypercalcemia. I have been requested to the patient consultation for possible wrist therapy treatment options for cure. Review of Systems Constitutional: DENIES: Diaphoretic episodes, Fatigue, Fever, Weight gain, Weight loss, Chills, Dizziness, Change in appetite, Night Sweats Endocrine: DENIES: Heat/cold intolerance, Polydipsia, Polyuria, Polyphagia Eyes: DENIES: Blurred vision, Diplopia, Eye inflammation, Eye pain, Vision loss , Photosensitivity, Double Vision Ears, nose, mouth, throat: DENIES: Tinnitus, Hearing loss, Vertigo, Nasal discharge, Oral lesions, Throat pain, Hoarseness, Ear Pain, Running Nose, Epistaxis, Sinus Pain, Toothache, Odynophagia Respiratory: DENIES: Apneas, Cough, Snoring, Wheezing, Hemoptysis, Sputum production, Shortness of breath Cardiovascular: DENIES: Chest pain, Palpitations, Syncope, Dyspnea on Exertion , PND, Lower Extremity Edema, Orthopnea, Claudication Gastrointestinal: DENIES: Abdominal pain, Black stools, Bloody stools, Constipation, Diarrhea, Nausea, Vomiting, Difficulty Swallowing, Anorexia Genitourinary: DENIES: Sexual dysfunction, Urinary frequency, Urinary incontinence, Urgency, Hematuria, Dysuria, Nocturia, Penile Discharge, Testicular Pain, Testicular Swelling Musculoskeletal: DENIES: Joint pain, Muscle aches, Stiffness, Joint Swelling, Back pain, Neck pain Integumentary: DENIES: Abnormal pigmentation, Nail changes, Pruritus, Rash Hematologic/lymphatic: DENIES: Bruising, Lymphadenopathy Immunologic/allergic: DENIES: Eczema, Urticaria Neurologic: DENIES: Abnormal gait, Headache, Localized weakness, Paresthesias, Seizures, Speech Problems, Tremor, Poor Balance Psychiatric: DENIES: Anxiety, Confusion, Mood changes, Depression, Hallucinations, Agitation, Suicidal Ideation, Homicidal Ideation, Delusions Patient admits to right neck mass that has been going for 2 months. Patient denies any pain in the area. Past Family Social History Allergies: Coded Allergies: No Known Allergies (Unverified Allergy, Unknown, 02/02/18) Past Medical History Hernia repair. Some sort of lung surgery. Past Surgical History As above Reported Medications Current Medications Sodium Chloride 1,000 ml @ 999 mls/hr BOLUS ONCE IV Last administered on 15:38; Start 02/02/18 at 15:30; Stop 02/02/18 at 16:30; Status DC Potassium Chloride/Sodium Chloride 1,000 ml @ 125 mls/hr Q8H IV Last administered on 02/03/18 06:38; Start 02/02/18 at 17:00 Magnesium Sulfate/ Dextrose 100 ml @ 100 mls/hr Q1H IV Last administered on 02/02/18at 20:01; Start 02/02/18 at 17:30; Stop 02/02/18 at 19:29; Status DC Sodium Chloride 1,000 ml @ 150 mls/hr Q6H40M IV Last administered on 02/02/18at 22:01; Start 02/02/18 at 17:45; Stop 02/02/18 at 22:40; Status DC Sodium Chloride (NS Flush) 2 ml UNSCH PRN IV FLUSH FLUSH AFTER USING IV ACCESS ; Start 02/02/18 at 17:45 Sodium Chloride (NS Flush) 2 ml BID IV FLUSH Last administered on 02/02/18at 23: 04; Start 02/02/18 at 21:00 Heparin Sodium (Porcine) (Heparin Inj) 5,000 units Q12HR SQ Last administered on 02/03/18 09:02; Start 02/02/18 at 18:00 Potassium Chloride (KCl) 40 meq ONCE ONCE PO Last administered on 02/02/18at 23: 04; Start 02/02/18 at 22:45; Stop 02/02/18 at 22:46; Status DC Pamidronate Disodium 90 mg/ Sodium Chloride 500 ml @ 125 mls/hr ONCE ONCE IV Last administered on 5/2/18at 09:01; Start 02/03/18 at 08:00; Stop 02/03/18 at 11: 59 Active Ordered Medications As above Family History Sister with breast carcinoma. Her brother with lung carcinoma. Social History Patient smokes 1.5 packs of cigarettes per day. Past 2 or 3 beers per day. Physical Exam Vital Signs Vital Signs Date Time Temp Pulse Resp B/P (MAP) Pulse Ox O2 Delivery O2 Flow Rate FiO2 02/03/18 08:01 98.0 42 16 113/72 (86) 96 02/03/18 04:00 Room Air 02/03/18 04:00 98.1 52 18 91/59 (70) 97 02/03/18 03:52 41 02/03/18 00:32 43 02/03/18 00:00 Room Air 02/02/18 20:00 Room Air 02/02/18 20:00 98.2 53 21 104/65 (78) 98 02/02/18 19:43 53 02/02/18 18:54 02/02/18 17:00 58 20 112/70 (84) 96 Room Air 02/02/18 16:00 56 18 112/70 (84) 96 Room Air 02/02/18 15:41 25 18 112/68 (83) 100 Room Air 02/02/18 15:20 97.4 67 19 116/73 (87) 98 Physical Exam GENERAL: This is a well-nourished, well-developed patient, in no apparent distress. SKIN: No rashes, ecchymoses or lesions. Cool and dry. HEAD: Atraumatic. Normocephalic. No temporal or scalp tenderness. EYES: Pupils equal round and reactive. Extraocular motions intact. No scleral icterus. No injection or drainage. ENT: Nose without bleeding, purulent drainage or septal hematoma. Throat without erythema, tonsillar hypertrophy or exudate. Uvula midline. Airway patent. Nasal examination of the oral cavity reveals no lesions or masses. Palpation of the oral cavity is unremarkable. NECK: Trachea midline. No JVD. Supple, nontender, no meningeal signs. There is a large mass on the right neck jugular digastric angle. Mass measures about 7.5 x 8 cm in diameter irregular in shape. Nontender to palpation. Movable. Hard to palpation. CARDIOVASCULAR: Regular rate and rhythm without murmurs, gallops, or rubs. RESPIRATORY: Clear to auscultation. Breath sounds equal bilaterally. No wheezes , rales, or rhonchi. GASTROINTESTINAL: Abdomen soft, non-tender, nondistended. No hepato-splenomegaly , or palpable masses. No guarding. MUSCULOSKELETAL: Extremities without clubbing, cyanosis, or edema. No joint tenderness, effusion, or edema noted. No calf tenderness. NEUROLOGICAL: Awake and alert. Cranial nerves II through XII intact. Motor and sensory grossly within normal limits. Five out of 5 muscle strength in all muscle groups. Normal speech. Laboratory Laboratory Tests Test 02/02/18 15:40 02/02/18 16:40 02/03/18 06:27 Blood Urea Nitrogen 11 7 Creatinine 0.81 0.64 Random Glucose 67 77 Total Protein 8.0 6.9 Albumin 3.1 Calcium Level 13.7 12.3 Magnesium Level 1.4 1.8 Alkaline Phosphatase 76 Aspartate Amino Transf (AST/SGOT) 16 Alanine Aminotransferase (ALT/SGPT) 12 Total Bilirubin 0.2 Sodium Level 133 143 Potassium Level 2.9 3.7 Chloride Level 91 110 Carbon Dioxide Level 34.4 30.0 Anion Gap 8 3 Estimat Glomerular Filtration Rate 97 127 Protein Corrected Calcium 13.0 12.5 Free Thyroxine 1.22 Thyroid Stimulating Hormone 3rd Gen 1.200 Parathyroid Hormone (Intact) 7.3 White Blood Count 16.9 8.7 Red Blood Count 4.12 3.50 Hemoglobin 13.1 11.3 Hematocrit 38.2 32.5 Mean Corpuscular Volume 92.8 92.8 Mean Corpuscular Hemoglobin 31.8 32.4 Mean Corpuscular Hemoglobin Concent 34.3 34.9 Red Cell Distribution Width 11.7 11.8 Platelet Count 241 300 Mean Platelet Volume 8.9 8.6 Neutrophils (%) (Auto) 72.9 70.6 Lymphocytes (%) (Auto) 16.0 18.0 Monocytes (%) (Auto) 9.0 8.8 Eosinophils (%) (Auto) 1.4 1.6 Basophils (%) (Auto) 0.7 1.0 Neutrophils # (Auto) 12.3 6.1 Lymphocytes # (Auto) 2.7 1.6 Monocytes # (Auto) 1.5 0.8 Eosinophils # (Auto) 0.2 0.1 Basophils # (Auto) 0.1 0.1 CBC Comment AUTO DIFF DIFF FINAL Differential Comment AUTO DIFF CONFIRMED Platelet Estimate NORMAL Platelet Morphology Comment CLUMPED Result Diagram: 02/03/18 0627 02/03/[address] soft tissues of the neck 11/25/2017: There is a 2.8 x 2.8 necrotic node in the group to jugular ede chain on the right. There is abnormal soft tissue extending down to the jugular ede chain on the right as well. Course Surgical pathology 01/27/2018: Right next needle biopsy moderately differentiated small cell carcinoma Assessment and Plan Assessment and Plan Assessment: 63-year-old white female with diagnosis of muscle carcinoma of the right neck. None primary at the present time. Patient being evaluated for definite curative radiotherapy treatment options. Plan: I had extensive discussion with the patient in regards to his present condition. I have personally reviewed the imaging studies from -. I have evaluated Dr. JASSO'S note from 02/03/2018, where he recommends the patient to be evaluated by radiation therapy and have a ENT consult for possible diagnosis. Patient with a known primary the present time. Clinically he cannot find anything in the oral cavity in the present time. Patient will need PET scan as an outpatient. Patient has 3 remaining teeth in the left lower jaw, patient will need a dental evaluation for possible extraction. Contacted the head and neck navigator to assist with consult for dental evaluation and possible extraction. Patient advised of the treatment modalities in regards to radiation therapy. Patient understands a surgical resection of the right neck mass would be an option. ENT will have to make recommendations in regards to this. I advised the patient because of the size and location of the right neck mass that he will need radiation therapy postoperatively or for cure. Patient most likely will need also concurrent chemotherapy. Patient advised of the side effects and complications of her therapy to include but not limited to: Weakness and fatigue, decreased blood counts, erythema of the skin and necrosis of the skin, jaw damage and jaw necrosis, bone damage and fracture, loss of taste which COULD be permanent, loss of facial hair which could be permanent, neck fibrosis, pain of the treated area, dry mouth which will be permanent, patient understands that any dental extraction seem to happen now as of later he will need to use hyperbaric oxygen treatments and it will increase the risk of complications, difficulty and pain with swallowing, esophageal strictures which may require dilation, parotid gland necrosis, nerve damage and spinal cord damage, brachial plexus damage, lung damage and fibrosis and lung pneumonitis. Patient understood everything that was explained and he agreed to move forward with the above recommendations. Patient advised if I can be of any further assistance and to please let me know otherwise we will proceed as above per Dr. Jasso, thank you for allowing me to part spent in care of this patient should have any further questions or concerns please do not hesitate to contact me. Gabriel Lomas MD February 03, 2018 11:25
--- NOTE | 2018-02-03 12:46 | HHI.PR ---
Subjective Remarks Follow-up hypercalcemia, squamous cell carcinoma of the neck. The patient states that he is feeling a little better. He states that he has been getting good rest since he got here. Denies pain currently. Denies difficulty breathing. Objective Vitals Vital Signs Date Time Temp Pulse Resp B/P (MAP) Pulse Ox O2 Delivery O2 Flow Rate FiO2 02/03/18 08:01 98.0 42 16 113/72 (86) 96 02/03/18 08:00 45 02/03/18 07:00 Room Air 02/03/18 04:00 Room Air 02/03/18 04:00 98.1 52 18 91/59 (70) 97 02/03/18 03:52 41 02/03/18 00:32 43 02/03/18 00:00 Room Air 02/02/18 20:00 Room Air 02/02/18 20:00 98.2 53 21 104/65 (78) 98 02/02/18 19:43 53 02/02/18 18:54 02/02/18 17:00 58 20 112/70 (84) 96 Room Air 02/02/18 16:00 56 18 112/70 (84) 96 Room Air 02/02/18 15:41 25 18 112/68 (83) 100 Room Air 02/02/18 15:20 97.4 67 19 116/73 (87) 98 I/O 02/02/18 02/02/18 02/02/18 02/03/18 02/03/18 02/03/18 07:00 15:00 23:00 07:00 15:00 23:00 Intake Total 1200 ml 630 ml Output Total 800 ml 800 ml Balance 400 ml -170 ml Intake Oral 480 ml IV Total 1200 ml 150 ml Output Urine Total 800 ml 800 ml # Voids 3 Result Diagram: 02/03/18 0627 02/03/18 0627 Objective Remarks General: No acute distress. HEENT: Large mass on the right side of the neck. Heart: Regular rate and rhythm. No murmur. Lungs: Clear to auscultation bilaterally. No wheezes, rales, or rhonchi. Breathing is nonlabored. Abdomen: Soft, nontender, nondistended. Extremities: No lower extremity edema. Psych: Alert and oriented. Neuro: Normal speech. No focal deficits noted. Procedures None Urinary Catheter: No Vascular Central Line Catheter: No A/P Problem List: (1) Hypercalcemia ICD Code: E83.52 - Hypercalcemia Status: Acute (2) Squamous cell carcinoma ICD Code: C44.92 - Squamous cell carcinoma of skin, unspecified Status: Acute (3) Hypomagnesemia ICD Code: E83.42 - Hypomagnesemia Status: Acute (4) Hypokalemia ICD Code: E87.6 - Hypokalemia Status: Acute Assessment and Plan 1. Hypercalcemia: Slightly better today. Appreciate oncology recommendations. Currently receiving a dose of pamidronate. Monitor labs. Bone scan ordered. 2. Hypokalemia: Improved with supplementation. 3. Hypomagnesemia: Slightly better today. 4. Squamous cell carcinoma of the neck: Appreciate medical oncology, radiation oncology recommendations. ENT consult is pending. 5. DVT prophylaxis: Heparin. Discharge Planning Pending further clinical improvement and clearance by oncology. Andrade Angeles MD February 03, 2018 12:46
--- NOTE | 2018-02-03 14:02 | RADRPT ---
EXAM DATE/TIME: 02/03/2018 13:11 [place] COMPARISON: No previous studies available for comparison. PRIOR BONE SCANS: No correlative bone scan available for comparison. INDICATIONS : Metastases. Squamous cell carcinoma of the neck. Hypercalcemia. DOSE: 31 mCi Tc99m MDP IV MEDICAL HISTORY : None SURGICAL HISTORY : None. ENCOUNTER: Initial ACUITY: 3 months PAIN SCALE: 0/10 LOCATION: Neck. TECHNIQUE: Three hours post intravenous administration of radiotracer, whole body bone scan imaging was performe d. FINDINGS: Planar bone scan demonstrates a normal pattern of uptake. No suspicious focal areas of increased or decreased uptake are seen. There is some focal uptake along two lateral left ribs in a linear pattern suggestive of most likely trauma. CONCLUSION: 1. There is some focal uptake along to left lateral ribs in a pattern suggestive of trauma. Recommend correlation with patient's history. If clinically indicated, plain films of the left ribs could be p erformed for correlation. 2. Otherwise, unremarkable whole body bone scan for patient's age. Cholo Collier MD on February 03, 2018 at 13:54 Board Certified Radiologist. This report was verified electronically.
[2018-02-03] MEDS: MELATONIN 5 MG TAB PO PRN (21:44)
[2018-02-04] VITALS (10 sets, daily range): BP systolic 93–142; BP diastolic 56–78; PULSE 44–67; RESP 16–18; TEMP 98.1–98.7; O2SAT 92–99
[2018-02-04 05:29] LABS: ALBUMIN 2.4 GM/DL (3.4-5.0); BICARBONATE 29.5 MEQ/L (21.0-32.0); CALCIUM 11.8 MG/DL (8.5-10.1); CREATININE 0.69 MG/DL (0.60-1.30); MAGNESIUM 1.2 MG/DL (1.5-2.5); TOTAL BILIRUBIN ADULT 0.2 MG/DL (0.2-1.0); TOTAL PROTEIN 6.1 GM/DL (6.4-8.2)
--- NOTE | 2018-02-04 07:48 | MB ---
cc: Morris El MD DATE: 02/04/2018 CHIEF COMPLAINT: Large right squamous cell carcinoma and hypercalcemia. HISTORY OF PRESENT ILLNESS: The patient is a pleasant 63-year-old male with a recent diagnosis this year of a right squamous cell carcinoma of his right neck from needle aspiration. This has been growing rapidly over the last 2 months. He denies any difficulty breathing and he is speaking well. He has hypercalcemia which is being followed by the home team. He has no current active pain or difficulty swallowing. PHYSICAL EXAMINATION: HEAD AND NECK: On examination, he has a large right neck mass roughly 7-8 cm. Otherwise, flexible nasopharyngoscopy and flexible fiberoptic laryngoscopy revealed a normal nasopharynx with a nasal septal deviation to the right posteriorly and the oral cavity shows poor dentition, base of tongue was soft and laryngeal examination appeared to be within normal limits. ASSESSMENT AND PLAN: This patient has a right large neck mass with currently unknown primary. The patient understanding is considering possible initial surgery with likely chemotherapy afterwards as one of his options. I recommend the patient to get a PET CT when available to help assist with the source of the unknown primary. As far as his hypercalcemia, that is being worked up. He is a pack a day smoker for 40 years and a history of alcohol, although it is less now, so these are obviously risk factors for the squamous cell carcinoma. Again, of note, a PET CT would help find the primary, which is what I am recommending. I also recommend the patient be seen at an academic institute for combined surgery of panendoscopy with biopsies, as well as surgical debulking of the right large squamous cell carcinoma of his right neck to likely coordinate care with here for a local postoperative chemotherapy with radiation afterwards. Thank you for this consultation. Morris lE MD PCC/KD , 07:22 AM , 07:47 AM
[2018-02-04] MEDS: NS + KCL 20 MEQ INJ 1,000 ML IV SCH ×2 (09:12→17:41)
[2018-02-04] MEDS: HEPARIN SODIUM - SQ 10,000 UNITS/ML VIAL SQ SCH ×2 (09:13→20:02)
[2018-02-04] MEDS: MAGNESIUM SULFATE 1 GM PREMIX 100 ML IV SCH ×2 (09:13→10:51)
[2018-02-04] MEDS: SODIUM CHLORIDE 0.9% FLUSH 10 ML FLUSH IV FLUSH SCH ×2 (09:13→20:10)
[2018-02-04 09:51] LABS: AUTOMATED NEUTROPHIL # 10.1 TH/MM3 (1.8-7.7); BASOPHIL # 0.1 TH/MM3 (0-0.2); BASOPHIL % 0.8 % (0.0-2.0); EOSINOPHIL # 0.1 TH/MM3 (0-0.4); EOSINOPHIL % 0.7 % (0.0-4.0); HEMATOCRIT 34.5 % (39.0-51.0); HEMOGLOBIN 11.8 GM/DL (13.0-17.0); LYMPH % 8.8 % (9.0-44.0); LYMPHOCYTE # 1.1 TH/MM3 (1.0-4.8); MEAN CELL VOLUME 93.8 FL (80.0-100.0); MEAN CORPUSCULAR HEMOGLOBIN 32.2 PG (27.0-34.0); MEAN CORPUSCULAR HGB CONC 34.4 % (32.0-36.0); MEAN PLATELET VOLUME 8.2 FL (7.0-11.0); MONO % 6.2 % (0.0-8.0); MONOCYTE # 0.8 TH/MM3 (0-0.9); NEUT % 83.5 % (16.0-70.0); PLATELET COUNT 361 TH/MM3 (150-450); RED BLOOD COUNT 3.68 MIL/MM3 (4.50-5.90); WHITE BLOOD COUNT 12.2 TH/MM3 (4.0-11.0)
--- NOTE | 2018-02-04 11:06 | HHI.PR ---
Subjective Remarks Follow up electrolyte abnormalities, neck cancer. Patient states that he feels okay today. No chest pain or dyspnea. No difficulty swallowing. Denies nausea or vomiting. Objective Vitals Vital Signs Date Time Temp Pulse Resp B/P (MAP) Pulse Ox O2 Delivery O2 Flow Rate FiO2 02/04/18 08:01 98.7 48 17 122/66 (84) 93 02/04/18 08:00 Room Air 02/04/18 04:00 67 02/04/18 04:00 98.4 49 16 131/70 (90) 92 02/04/18 00:00 98.2 53 18 142/78 (99) 93 02/04/18 00:00 44 02/03/18 20:00 49 02/03/18 20:00 98.8 50 18 127/66 (86) 93 02/03/18 20:00 Room Air 02/03/18 16:01 98.7 48 17 112/64 (80) 95 02/03/18 16:00 53 02/03/18 12:01 97.7 48 17 106/62 (77) 98 02/03/18 12:00 66 I/O 02/03/18 02/03/18 02/03/18 02/04/18 02/04/18 02/04/18 07:00 15:00 23:00 07:00 15:00 23:00 Intake Total 630 ml 1500 ml 3090 ml 745 ml Output Total 800 ml 500 ml 1100 ml Balance -170 ml 1500 ml 2590 ml -355 ml Intake Oral 480 ml 720 ml 120 ml IV Total 150 ml 1500 ml 2370 ml 625 ml Output Urine Total 800 ml 500 ml 1100 ml # Voids 3 # Bowel Movements 1 Result Diagram: 02/04/18 0931 02/04/18 0417 Imaging Last Impressions Bone Scan Nuclear Medicine 02/03/18 0000 Signed Impressions: Service Date/Time: Saturday, February 03, 2018 13:11 - CONCLUSION: 1. There is some focal uptake along to left lateral ribs in a pattern suggestive of trauma. Recommend correlation with patient's history. If clinically indicated, plain films of the left ribs could be performed for correlation. 2. Otherwise, unremarkable whole body bone scan for patient's age. Cholo Collier MD Objective Remarks General: No acute distress. HEENT: Large mass on the right side of the neck. Heart: Regular rate and rhythm. No murmur. Lungs: Clear to auscultation bilaterally. No wheezes, rales, or rhonchi. Breathing is nonlabored. Abdomen: Soft, nontender, nondistended. Extremities: No lower extremity edema. Psych: Alert and oriented. Neuro: Normal speech. No focal deficits noted. Procedures None Urinary Catheter: No Vascular Central Line Catheter: No A/P Problem List: (1) Hypercalcemia ICD Code: E83.52 - Hypercalcemia Status: Acute (2) Squamous cell carcinoma ICD Code: C44.92 - Squamous cell carcinoma of skin, unspecified Status: Acute (3) Hypomagnesemia ICD Code: E83.42 - Hypomagnesemia Status: Acute (4) Hypokalemia ICD Code: E87.6 - Hypokalemia Status: Acute Assessment and Plan 1. Hypercalcemia: Serum calcium is improving. Appreciate oncology recommendations. Received a dose of pamidronate. Monitor labs. Bone scan report noted. 2. Hypokalemia: Improved with supplementation. 3. Hypomagnesemia: Slightly better today. 4. Squamous cell carcinoma of the neck: Appreciate medical oncology, radiation oncology, ENT recommendations. Patient needs PET/CT to further evaluate. Per ENT, will need referral to [facility] for surgical intervention. 5. DVT prophylaxis: Heparin. Discharge Planning Pending further clinical improvement and clearance by oncology. Andrade Angeles MD February 04, 2018 11:06
[2018-02-04] MEDS ORDERED: ceFAZolin 2 GM PREMIX 50 ML IV SCH (13:45)
[2018-02-04] MEDS ORDERED: VANCOMYCIN INJ 1,000 MG in SODIUM CHLOR 0.9% 250 ML INJ 250 ML IV SCH (13:45)
--- NOTE | 2018-02-04 14:38 | PD.ONC.PN ---
Subjective Subjective Remarks Afebrile Patient denies any pain States the growth on his right neck started approximately 2 months ago Objective Data Date Time Temp Pulse Resp B/P (MAP) Pulse Ox O2 Delivery O2 Flow Rate FiO2 02/04/18 12:19 98.2 56 17 93/56 (68) 95 02/04/18 08:01 98.7 48 17 122/66 (84) 93 02/04/18 08:00 Room Air 02/04/18 04:00 67 02/04/18 04:00 98.4 49 16 131/70 (90) 92 02/04/18 00:00 98.2 53 18 142/78 (99) 93 02/04/18 00:00 44 02/03/18 20:00 49 02/03/18 20:00 98.8 50 18 127/66 (86) 93 02/03/18 20:00 Room Air 02/03/18 16:01 98.7 48 17 112/64 (80) 95 02/03/18 16:00 53 02/04/18 02/04/18 02/04/18 07:00 15:00 23:00 Intake Total 745 ml Output Total 1100 ml Balance -355 ml Result Diagram: 02/04/18 0931 02/04/18 0417 Laboratory Results Laboratory Tests Test 02/04/18 04:17 02/04/18 09:31 Blood Urea Nitrogen 6 MG/DL Creatinine 0.69 MG/DL Random Glucose 72 MG/DL Total Protein 6.1 GM/DL Albumin 2.4 GM/DL Calcium Level 11.8 MG/DL Magnesium Level 1.2 MG/DL Alkaline Phosphatase 60 U/L Aspartate Amino Transf (AST/SGOT) 17 U/L Alanine Aminotransferase (ALT/SGPT) 11 U/L Total Bilirubin 0.2 MG/DL Sodium Level 141 MEQ/L Potassium Level 3.8 MEQ/L Chloride Level 108 MEQ/L Carbon Dioxide Level 29.5 MEQ/L Anion Gap 4 MEQ/L Estimat Glomerular Filtration Rate 116 ML/MIN Protein Corrected Calcium MG/DL White Blood Count 12.2 TH/MM3 Red Blood Count 3.68 MIL/MM3 Hemoglobin 11.8 GM/DL Hematocrit 34.5 % Mean Corpuscular Volume 93.8 FL Mean Corpuscular Hemoglobin 32.2 PG Mean Corpuscular Hemoglobin Concent 34.4 % Red Cell Distribution Width 12.0 % Platelet Count 361 TH/MM3 Mean Platelet Volume 8.2 FL Neutrophils (%) (Auto) 83.5 % Lymphocytes (%) (Auto) 8.8 % Monocytes (%) (Auto) 6.2 % Eosinophils (%) (Auto) 0.7 % Basophils (%) (Auto) 0.8 % Neutrophils # (Auto) 10.1 TH/MM3 Lymphocytes # (Auto) 1.1 TH/MM3 Monocytes # (Auto) 0.8 TH/MM3 Eosinophils # (Auto) 0.1 TH/MM3 Basophils # (Auto) 0.1 TH/MM3 CBC Comment DIFF FINAL Differential Comment Administered Medications Medications (Trade) Dose Ordered Sig/Gonsalo Route PRN Reason Start Time Stop Time Status Last Admin Dose Admin Potassium Chloride/Sodium Chloride 1,000 ml @ 125 mls/hr Q8H IV 02/02/18 17:00 02/04/18 09:12 Sodium Chloride (NS Flush) 2 ml BID IV FLUSH 02/02/18 21:00 02/04/18 09:13 Heparin Sodium (Porcine) (Heparin Inj) 5,000 units Q12HR SQ 02/02/18 18:00 02/04/18 09:13 Melatonin (Melatonin) 5 mg HS PRN PO INSOMNIA 02/03/18 20:00 02/03/18 21:44 Objective Remarks GENERAL: Older male resting in bed watching TV in no obvious distress SKIN: Warm and dry. HEAD: Normocephalic. EYES: No injection or drainage. NECK: Mass on the right side of the neck approximately the size of a softball CARDIOVASCULAR: Regular rate and rhythm without murmurs. Mildly bradycardic RESPIRATORY: Breath sounds equal bilaterally. No accessory muscle use. GASTROINTESTINAL: Abdomen soft, non-tender, nondistended. EXTREMITIES: No cyanosis, or edema. MUSCULOSKELETAL: Adequate muscle tone. Assessment/Plan Problem List: (1) Squamous cell carcinoma ICD Codes: C44.92 - Squamous cell carcinoma of skin, unspecified Status: Acute Plan: --Patient has new diagnosis of moderately differentiated squamous cell carcinoma --ENT has evaluated patient and recommended PET scan --We will Place Swdgvr-a-Jfxe (2) Hypercalcemia ICD Codes: E83.52 - Hypercalcemia Status: Acute Plan: --Status post 1 dose of pamidronate Assessment 63-year-old male with new diagnosis of squamous cell cancer with unknown primary Plan 1. Monitor electrolytes 2. Bone scan negative for definitive metastatic disease 3. Appreciate case management assistance in getting patient insurance 4. Plan for PET scan outpatient 5. Radiology consulted for Fphwrp-u-Hnju placement Attending Statement The exam, history, and the medical decision-making described in the above note were completed with the assistance of the mid-level provider. I reviewed and agree with the findings presented. I attest that I had a [id number] encounter with the patient on the same day, and personally performed and documented my assessment and findings in the medical record. Feels better. No pain. Bone scan showed no definite bone mets. Await ENT evaluation. Ca trending down after the pamidronate. Consult IR for port placement. Outpatient PET/CT. Martha Shoemaker February 04, 2018 14:38 Blayne Ulloa MD February 04, 2018 16:11
[2018-02-04] MEDS: MELATONIN 5 MG TAB PO PRN (20:01)
[2018-02-04 22:16] LABS: INTERNATIONAL NORMALIZED RATIO 1.2 RATIO
[2018-02-05] VITALS (11 sets, daily range): BP systolic 94–134; BP diastolic 55–89; PULSE 45–64; RESP 16–19; TEMP 97.7–98.8; O2SAT 93–97
[2018-02-05] MEDS: NS + KCL 20 MEQ INJ 1,000 ML IV SCH ×3 (01:40→17:00)
[2018-02-05] MEDS ORDERED: ZOLPIDEM TARTRATE 5 MG TAB PO ONE (02:00)
[2018-02-05 08:33] LABS: BICARBONATE 24.8 MEQ/L (21.0-32.0); CREATININE 0.63 MG/DL (0.60-1.30); MAGNESIUM 1.5 MG/DL (1.5-2.5)
[2018-02-05] MEDS: SODIUM CHLORIDE 0.9% FLUSH 10 ML FLUSH IV FLUSH SCH (08:37)
[2018-02-05] MEDS: HEPARIN SODIUM - SQ 10,000 UNITS/ML VIAL SQ SCH (08:37)
[2018-02-05] MEDS ORDERED: fentaNYL CITRATE 250 MCG/5 ML AMP ONE (11:32)
[2018-02-05] MEDS ORDERED: MIDAZOLAM HCL 5 MG/5 ML VIAL ONE (11:32)
[2018-02-05] MEDS ORDERED: LIDOCAINE 1%/EPINEPHrine 1:100,000 SOLN 30 ML VIAL ONE (11:53)
--- NOTE | 2018-02-05 12:41 | PD.RAD ---
Post Procedure Progress Note Pre Procedure Diagnosis: (1) Squamous cell carcinoma Post Procedure Diagnosis: (1) Squamous cell carcinoma Procedure Date: February 05, 2018 Supervising Radiologist: Cameron Dhaliwal Estimated blood loss: 3cc Anesthesia: Local, Conscious Sedation Plan of Activity Patient to Unit: ROPU Patient Condition: Fair Additional Comments: Port placed via the right subclavian vein Catheter in good position OK for use See PACS Report for procedural detail/treatment Cameron Dhaliwal MD February 05, 2018 12:41
[2018-02-05] MEDS ORDERED: SODIUM CHLORIDE 0.9% FLUSH 10 ML FLUSH IVF PRN (12:45)
--- NOTE | 2018-02-05 15:00 | PD.ONC.PN ---
Subjective Subjective Remarks Afebrile Patient denies pain Has some slight drainage from right neck mass Anxious to go home Objective Data Date Time Temp Pulse Resp B/P (MAP) Pulse Ox O2 Delivery O2 Flow Rate FiO2 02/05/18 12:50 97.7 50 16 116/67 (83) 93 02/05/18 11:15 97.9 53 18 117/61 (79) 96 02/05/18 08:00 Room Air 02/05/18 08:00 49 02/05/18 07:30 98.2 51 18 94/55 (68) 95 02/05/18 04:00 49 02/05/18 04:00 Room Air 02/05/18 04:00 98.2 64 19 122/70 (87) 93 02/05/18 00:09 61 02/05/18 00:00 Room Air 02/05/18 00:00 98.8 59 17 134/89 (104) 97 02/04/18 20:35 50 02/04/18 20:00 98.1 58 18 127/62 (83) 94 02/04/18 20:00 Room Air 02/04/18 16:01 98.1 51 17 116/58 (77) 99 02/04/18 16:00 57 02/05/18 02/05/18 02/05/18 07:00 15:00 23:00 Intake Total 0 ml 300 ml Output Total 650 ml Balance -650 ml 300 ml Result Diagram: 02/04/18 0931 02/05/18 0640 Laboratory Results Laboratory Tests Test 02/04/18 21:30 02/05/18 06:40 Prothrombin Time 12.0 SEC Prothromb Time International Ratio 1.2 RATIO Blood Urea Nitrogen 6 MG/DL Creatinine 0.63 MG/DL Random Glucose 70 MG/DL Calcium Level 10.0 MG/DL Magnesium Level 1.5 MG/DL Sodium Level 139 MEQ/L Potassium Level 3.9 MEQ/L Chloride Level 106 MEQ/L Carbon Dioxide Level 24.8 MEQ/L Anion Gap 8 MEQ/L Estimat Glomerular Filtration Rate 129 ML/MIN Administered Medications Medications (Trade) Dose Ordered Sig/Gonsalo Route PRN Reason Start Time Stop Time Status Last Admin Dose Admin Potassium Chloride/Sodium Chloride 1,000 ml @ 125 mls/hr Q8H IV 02/02/18 17:00 02/05/18 08:38 Sodium Chloride (NS Flush) 2 ml BID IV FLUSH 02/02/18 21:00 02/04/18 09:13 Heparin Sodium (Porcine) (Heparin Inj) 5,000 units Q12HR SQ 02/02/18 18:00 02/04/18 20:02 Vancomycin HCl 1000 mg/Sodium Chloride 250 ml @ 250 mls/hr CREW TEAM MEMBER IV 02/04/18 13:45 02/08/18 13:44 02/05/18 11:34 Cefazolin Sodium/ Dextrose 50 ml @ 100 mls/hr CREW TEAM MEMBER IV 02/04/18 13:45 02/08/18 13:44 02/05/18 11:56 Objective Remarks GENERAL: Older male resting in bed watching TV in no obvious distress SKIN: Warm and dry. HEAD: Normocephalic. EYES: No injection or drainage. NECK: Mass on the right side of the neck approximately the size of a baseball. Able to express a small amount of pus CARDIOVASCULAR: Regular rate and rhythm without murmurs. Mildly bradycardic RESPIRATORY: Breath sounds equal bilaterally. No accessory muscle use. GASTROINTESTINAL: Abdomen soft, non-tender, nondistended. EXTREMITIES: No cyanosis, or edema. MUSCULOSKELETAL: Adequate muscle tone. Assessment/Plan Problem List: (1) Squamous cell carcinoma ICD Codes: C44.92 - Squamous cell carcinoma of skin, unspecified Status: Acute Plan: --Patient has new diagnosis of moderately differentiated squamous cell carcinoma --ENT has evaluated patient and recommended PET scan --Lbusey-u-Scom placed today (2) Hypercalcemia ICD Codes: E83.52 - Hypercalcemia Status: Acute Plan: --Status post 1 dose of pamidronate Assessment 63-year-old male with new diagnosis of squamous cell cancer with unknown primary Plan 1. Calcium normalizing 2. Obtain culture of drainage from right neck mass 3. Follow-up in clinic as scheduled on Thursday with Dr. Ulloa 4. Clear for discharge from oncology standpoint Attending Statement The exam, history, and the medical decision-making described in the above note were completed with the assistance of the mid-level provider. I reviewed and agree with the findings presented. I attest that I had a [id number] encounter with the patient on the same day, and personally performed and documented my assessment and findings in the medical record. Denies pain. Await port placement. Ca trended down to normal Can be d/c from oncology standpoint and f/u oncology clinic next week. Will need outpt PET/CT. Martha Shoemaker February 05, 2018 15:00 Blayne Ulloa MD February 05, 2018 15:08
--- NOTE | 2018-02-05 15:00 | HHI.DCPOC ---
Discharge Care Plan Diagnosis: (1) Squamous cell carcinoma (2) Hypercalcemia (3) Hypomagnesemia (4) Hypokalemia Goals to Promote Your Health * To prevent worsening of your condition and complications * To maintain your health at the optimal level Directions to Meet Your Goals Take your medications as prescribed Follow your dietary instruction Follow activity as directed Keep your appointments as scheduled Take your immunizations and boosters as scheduled If your symptoms worsen call your PCP, if no PCP go to Urgent Care Center or Emergency Room Smoking is Dangerous to Your Health. Avoid second hand smoke Call the 24-hour hour crisis hotline for domestic abuse at Andrade Angeles MD February 05, 2018 15:00
--- NOTE | 2018-02-05 15:05 | HHI.DS ---
Discharge Summary Admission Date February 02, 2018 at 17:24 Discharge Date: February 05, 2018 Admitting Diagnosis Hypercalcemia, hypokalemia, hypomagnesemia, squamous cell carcinoma (1) Hypercalcemia ICD Code: E83.52 - Hypercalcemia Status: Acute (2) Squamous cell carcinoma ICD Code: C44.92 - Squamous cell carcinoma of skin, unspecified Status: Acute (3) Hypomagnesemia ICD Code: E83.42 - Hypomagnesemia Status: Acute (4) Hypokalemia ICD Code: E87.6 - Hypokalemia Status: Acute Procedures 02/05/18 Xizutt-u-Xvvd placement Brief History - From Admission 63 Y/O male who presented to the ED for abnormal labs. The patient is a poor historian. He had lab work done outpatient which revealed a markedly elevated calcium level therefore he was sent to the emergency room. Patient himself denies any symptoms. However his friend reported to the ED staff he had some issues with confusion. The patient does have a right sided neck mass that was biopsied recently and came back as squamous cell carcinoma. The patient's oncologist is Dr. Ulloa. Workup in the ED revealed a protein corrected calcium of 13. Patient denies any bone pain. He was started on IVF. CBC/BMP: 02/04/18 0931 02/05/18 0640 Significant Findings Laboratory Tests Test 02/02/18 15:40 02/02/18 16:40 02/03/18 06:27 02/03/18 11:12 Random Glucose 67 MG/DL (74-106) Albumin 3.1 GM/DL (3.4-5.0) Calcium Level 13.7 MG/DL (8.5-10.1) 12.3 MG/DL (8.5-10.1) Magnesium Level 1.4 MG/DL (1.5-2.5) Sodium Level 133 MEQ/L (136-145) Potassium Level 2.9 MEQ/L (3.5-5.1) Chloride Level 91 MEQ/L (98-107) 110 MEQ/L (98-107) Carbon Dioxide Level 34.4 MEQ/L (21.0-32.0) Protein Corrected Calcium 13.0 MG/DL (8.5-10.1) 12.5 MG/DL (8.5-10.1) Ionized Calcium 8.3 mg/dL (4.8-5.6) Parathyroid Hormone (Intact) 7.3 PG/ML (12.4-76.8) White Blood Count 16.9 TH/MM3 (4.0-11.0) Red Blood Count 4.12 MIL/MM3 (4.50-5.90) 3.50 MIL/MM3 (4.50-5.90) Hematocrit 38.2 % (39.0-51.0) 32.5 % (39.0-51.0) Neutrophils (%) (Auto) 72.9 % (16.0-70.0) 70.6 % (16.0-70.0) Monocytes (%) (Auto) 9.0 % (0.0-8.0) 8.8 % (0.0-8.0) Neutrophils # (Auto) 12.3 TH/MM3 (1.8-7.7) Monocytes # (Auto) 1.5 TH/MM3 (0-0.9) Platelet Morphology Comment CLUMPED (NORMAL) Hemoglobin 11.3 GM/DL (13.0-17.0) Anion Gap 3 MEQ/L (5-15) Parathyroid Hormone Related Peptide 7.4 pmol/L (<2.0) Test 02/04/18 04:17 02/04/18 09:31 02/04/18 21:30 02/05/18 06:40 Blood Urea Nitrogen 6 MG/DL (7-18) 6 MG/DL (7-18) Random Glucose 72 MG/DL (74-106) 70 MG/DL (74-106) Total Protein 6.1 GM/DL (6.4-8.2) Albumin 2.4 GM/DL (3.4-5.0) Calcium Level 11.8 MG/DL (8.5-10.1) Magnesium Level 1.2 MG/DL (1.5-2.5) Alanine Aminotransferase (ALT/SGPT) 11 U/L (12-78) Chloride Level 108 MEQ/L (98-107) Anion Gap 4 MEQ/L (5-15) White Blood Count 12.2 TH/MM3 (4.0-11.0) Red Blood Count 3.68 MIL/MM3 (4.50-5.90) Hemoglobin 11.8 GM/DL (13.0-17.0) Hematocrit 34.5 % (39.0-51.0) Neutrophils (%) (Auto) 83.5 % (16.0-70.0) Lymphocytes (%) (Auto) 8.8 % (9.0-44.0) Neutrophils # (Auto) 10.1 TH/MM3 (1.8-7.7) Prothrombin Time 12.0 SEC (9.8-11.6) Imaging Last Impressions Bone Scan Nuclear Medicine 02/03/18 0000 Signed Impressions: Service Date/Time: Saturday, February 03, 2018 13:11 - CONCLUSION: 1. There is some focal uptake along to left lateral ribs in a pattern suggestive of trauma. Recommend correlation with patient's history. If clinically indicated, plain films of the left ribs could be performed for correlation. 2. Otherwise, unremarkable whole body bone scan for patient's age. Cholo Collier MD PE at Discharge General: No acute distress. HEENT: Large mass on the right side of the neck. There is a small amount of pustular drainage and a small amount of serosanguineous drainage was expressed as well. Heart: Regular rate and rhythm. No murmur. Lungs: Clear to auscultation bilaterally. No wheezes, rales, or rhonchi. Breathing is nonlabored. Abdomen: Soft, nontender, nondistended. Extremities: No lower extremity edema. Psych: Alert and oriented. Neuro: Normal speech. No focal deficits noted. Pt update on day of discharge The patient has no complaints at this time. Denies pain, dyspnea, nausea, vomiting. He wants to go home. The patient was seen and discussed with Martha Shoemaker, oncology UTILITY OPERATOR [employer]. Discussed with case management. Hospital Course The patient was admitted for management of hypercalcemia, hypokalemia, hypomagnesemia. Oncology was consulted for assistance with management of squamous cell carcinoma and electrolyte abnormalities. Radiation oncology was consulted. ENT was consulted and recommended PET CT as outpatient. The patient was given pamidronate. Magnesium and potassium were supplemented. Calcium, magnesium, and potassium returned to the normal range. Qbyzmz-o-Xvyn was placed. The patient was cleared for discharge by oncology and felt to be stable for discharge home. Pt Condition on Discharge: Stable Discharge Disposition: Discharge Home Discharge Time: > 30 minutes Discharge Instructions DIET: Follow Instructions for: Heart Healthy Diet Activities you can perform: Regular-No Restrictions Follow up Referrals: Ear Nose Throat - 1 Week with Morris El MD Oncology - 02/08/18 with Blayne Ulloa MD PCP Follow-up - 2 Weeks New Medications: Magnesium Oxide (Magnesium Oxide) 400 Mg Tab 400 MG PO DAILY for Nutritional Supplement, #30 TAB 0 Refills Andrade Angeles MD February 05, 2018 15:05
[2018-02-05] MEDS ORDERED: MAGN400T2 PO (15:06)
--- NOTE | 2018-02-05 15:58 | RADRPT ---
EXAM DATE/TIME: 02/05/2018 12:29 [place] COMPARISON: No previous studies available for comparison. INDICATIONS : Patient with large neck mass.Will need chemotherapy. MEDICAL HISTORY : 1.neckmass 2. hypokalemia 3. smoker 4.hypercalcemia SURGICAL HISTORY : 1. rt neck mass bx ENCOUNTER: Initial ACUITY: 2 months PAIN SCORE: 0/10 FLUORO TIME: 1.26 minutes IMAGE SERIES: 1 SEDATION TIME: 15 minutes ACCESS: Right subclavian vein SEDATION: 1.) 2 mg midazolam (Versed) IV 2.) 100 mcg fentanyl (Sublimaze) IV Prophylactic antibiotics were administered with appropriate pre-procedure timing. Vancomycin within 2 hours of procedure, Ancef (or alternative) within 1 hour of procedure. DEVICE: 1. 8 [place] single lumen BIO VENICE angiodynamics PROCEDURE : 1. Continuous pulse oximetry and EKG monitoring. 2. Intravenous conscious sedation. 3. Ultrasound guidance for venous access. 4. Fluoroscopic guided implantable central venous port placement. The patient was placed supine. The neck was prepped in sterile fashion. Full sterile technique was u sed, including cap, mask, sterile gloves and gown, and a large sterile sheet. Hand hygiene and 2% ch lorhexidine Betadine was utilized per protocol for cutaneous antisepsis with appropriate dry time for site. Sterile gel and sterile probe cover were utilized for ultrasound guidance. The skin and sub cutaneous tissues were infiltrated with local anesthetic solution. Under direct ultrasound guidance, the right subclavian vein was accessed. The ultrasound images depi cting access guidance were stored and saved to PACS for permanent record. A subcutaneous pocket was created using blunt dissection. The port was introduced to the pocket. The catheter tubing was fed through a subcutaneous tunnel to the venotomy site. The catheter tubing was cut to a suitable length and then was introduced through a valved Peel-Away sheath and positioned with catheter tubing tip at the cavo-atrial junction level. The pocket incision was closed with subcuticular Vicryl suture. St patrick-Strips were applied. The port was flushed and locked with heparin solution per protocol. Steril e dressing was applied to the site. The patient tolerated the procedure well. Conscious sedation was performed with the prescribed dosages and duration as above in the presence of an independent trained radiology nurse to assist in the monitoring of the patient. EKG and oximetry remained stable throughout the procedure. The patient tolerated the procedure well and there were no complications. The patient was sent to post anesthesia recovery in stable condition. CONCLUSION: Uncomplicated ultrasound and fluoroscopic guided implanted central venous port catheter placement as described in detail above. An 8 [place]auruan Power port was placed. Cameron Dhaliwal MD on February 05, 2018 at 15:56 Board Certified Radiologist. This report was verified electronically.
== END 2018-02-05 18:32 | disposition home or self-care (01) | DRG 147 ==
LOC: NEPC 15:18 → NEDA 17:24 → N04B 19:08
PROVIDERS: ADMIT Family Medicine; ATTEND Family Medicine
PROC: 0JHD3WZ Insertion of Totally Implantable Vascular Access Device into Right Upper Arm Subcutaneous Tissue and Fascia, Percutaneous Approach (ICD-10-PCS; principal; 2018-02-05)
PROC: 05H533Z Insertion of Infusion Device into Right Subclavian Vein, Percutaneous Approach (ICD-10-PCS; 2018-02-05)
DX: C76.0 Malignant neoplasm of head, face and neck (principal); C77.9 Secondary and unspecified malignant neoplasm of lymph node, unspecified; E83.52 Hypercalcemia; E87.6 Hypokalemia; E83.42 Hypomagnesemia; F17.200 Nicotine dependence, unspecified, uncomplicated
CPT/HCPCS: 36561; 76937; 77001; 78306; 80048; 80053; 82330; 82397; 83735; 83970; 84155; 84439; 84443; 85025; 85610; 86403; 87070; 87205; 93005; 96360; 99152; A9503; C1788; J0690; J1642; J1644; J2250; J2430; J3010; J3370; J3475; J3480; J7030; J7040; J7050

== ENCOUNTER 2018-03-03 07:50 | Day surgery (SDC) | payer OTHER, MEDICAID ==
[2018-03-03] VITALS (8 sets, daily range): BP systolic 93–117; BP diastolic 60–77; PULSE 57–74; RESP 16–18; TEMP 97.6–97.7; O2SAT 94–96
[~2018-03-03] VITALS: Ht 167.6 cm; Wt 40.9 kg
[~2018-03-03 07:50] MED LIST changes: -ACYC800T PO; -CEPH-460 PO; -HYDR-3533 PO; +MAGN400T2 PO
[2018-03-03] MEDS ORDERED: SODIUM CHLOR 0.9% 1000 ML INJ 1,000 ML IV SCH (08:30)
[2018-03-03] MEDS ORDERED: IMPLANTED VASCULAR ACCESS PORT - SODIUM CHLORIDE FLUSH IV FLUSH SCH (08:45)
[2018-03-03] MEDS ORDERED: IMPLANTED VASCULAR ACCESS PORT - SODIUM CHLORIDE FLUSH PRN IV FLUSH (08:45)
[2018-03-03] MEDS ORDERED: MIDAZOLAM HCL 2 MG/2 ML VIAL ONE (09:00)
--- NOTE | 2018-03-03 11:07 | RADRPT ---
EXAM DATE: 03/03/2018 10:39 AM EDT AGE/SEX: 63 years / Male INDICATIONS: Right lung mass CLINICAL DATA: This is the patient's initial encounter. Patient reports that signs and symptoms have been present for 1 day and indicates a pain score of 0/10. MEDICAL/SURGICAL HISTORY: Carcinoma, head and neck. Right neck lump . Hernia, port placement RADIATION DOSE: 4.26 CTDI (mGy) COMPARISON: No prior [facility] exams available for comparison. TECHNIQUE: Multiple contiguous axial images were obtained through the chest without contrast. Image s were obtained in suspended respiration using multiple row detector helical technique. Using automa silvia exposure control and adjustment of the mA and/or kV according to patient size, radiation dose was kept as low as reasonably achievable to obtain optimal diagnostic quality images. FINDINGS: The patient arrived for per changes biopsy of a consolidative mass in the right upper lobe. This has now been replaced by a large bulla with moderate peribronchial thickening associated with this. 1.2 cm parenchymal mass right lung posteriorly. Second nodular opacity seen laterally in the left kevin g. Moderate emphysematous changes are present. There is no axillary adenopathy. There is no radiographically significant mediastinal adenopathy. [address] Noel Ulloa on todays date. CONCLUSION: 1. Lesion in the apex on the right was not biopsied because it is changing character. 2. Bronchoscopy may be of benefit to exclude inflammatory process. Electronically signed by: Mike Dhaliwal MD 03/03/2018 11:06 AM EDT
--- NOTE | 2018-03-03 11:27 | RADRPT ---
EXAM DATE: 03/03/2018 11:17 AM EDT AGE/SEX: 63 years / Male INDICATIONS: Follow up right lung lesions. CLINICAL DATA: This is the patient's initial encounter. Patient reports that signs and symptoms have been present for 1 day and indicates a pain score of 1/10. MEDICAL/SURGICAL HISTORY: Carcinoma, lung. . [id number]. [place] [facility] [place]03/2018. . FINDINGS: PA and lateral views of the chest were obtained and demonstrate hyperinflation and apparent chronic s carring. This is greatest in the right lung apex. There are no confluent infiltrates or effusions. Th e previously noted 1.3 cm masslike opacity in the right upper lobe seen on the recent CT is not as we ll visualized on the plain film but appears located in the right suprahilar region with an area of pa tchy density measuring up to approximately 1.1 cm. Bullous changes again noted in the right upper lob e. There are faint patchy areas of opacity in the left upper lobe. The heart size is within normal li mits with no perihilar edema. There is a right subclavian implantable port catheter in place with the tip in the superior vena cava. CONCLUSION: 1. The previously noted 1.3 cm masslike opacity seen on CT in the right upper lobe is not as well-vi sualized on the plain film appears located in the right suprahilar region as an area of patchy densit y measuring up to 1.1 cm. 2. Underlying emphysema and scarring. 3. Mild patchy opacity in the left lung apex. Electronically signed by: Cristian Mckeon MD 03/03/2018 11:25 AM EDT
== END 2018-03-03 12:12 | disposition home or self-care (01) ==
LOC: HRAD 07:50 → HRIP 07:57 → HRAD 12:12
PROVIDERS: ATTEND Internal Medicine Hematology & Oncology
DX: R91.8 Other nonspecific abnormal finding of lung field (principal); J43.9 Emphysema, unspecified; Z85.118 Personal history of other malignant neoplasm of bronchus and lung
CPT/HCPCS: 71046; 71250; 99211; J2250; J3010; G0463